=== PATIENT | female | born 1970 | race Caucasian/White ===

== ENCOUNTER 2017-02-15 01:25 | Observation (INO) | payer BC, OTHER ==
[2017-02-15] VITALS (7 sets, daily range): BP systolic 100–127; BP diastolic 59–69; PULSE 59–89; RESP 18–20; TEMP 97.5–98.1; O2SAT 95–100
[~2017-02-15] VITALS: Ht 170.2 cm; Wt 70.0 kg
[2017-02-15 02:29] LABS: AUTOMATED NEUTROPHIL # 6.4 TH/MM3 (1.8-7.7); BASOPHIL # 0.1 TH/MM3 (0-0.2); BASOPHIL % 0.6 % (0.0-2.0); EOSINOPHIL # 0.2 TH/MM3 (0-0.4); EOSINOPHIL % 1.9 % (0.0-4.0); HEMATOCRIT 35.5 % (35.0-46.0); HEMO FLAGS DIFF FINAL; LYMPH % 19.2 % (9.0-44.0); LYMPHOCYTE # 1.8 TH/MM3 (1.0-4.8); MEAN CELL VOLUME 90.9 FL (80.0-100.0); MEAN CORPUSCULAR HEMOGLOBIN 29.9 PG (27.0-34.0); MEAN CORPUSCULAR HGB CONC 32.9 % (32.0-36.0); MONO % 8.1 % (0.0-8.0); NEUT % 70.2 % (16.0-70.0); PLATELET COUNT 250 TH/MM3 (150-450); RED CELL DISTRIBUTION WIDTH 13.1 % (11.6-17.2); WHITE BLOOD COUNT 9.1 TH/MM3 (4.0-11.0)
[2017-02-15] MEDS ORDERED: MORPHINE SULFATE 4 MG/ML INJ IV PUSH ONE ×2 (02:30→05:15)
--- NOTE | 2017-02-15 02:30 | PD ---
HPI Chief Complaint: Abdominal Pain Time Seen by Provider: 01:41 Travel History International Travel<30 days: No Contact w/Intl Traveler<30days: No Traveled to known affect area: No History of Present Illness HPI So 46-year-old woman who presents to the emergency department complaining of abdominal pain and flank pain. States that over the past 5 hours associated gradual onset of worsening right high flank pain just underneath her breast along the costal margin. She's never had pain like this before. She had a little nausea vomiting, some occasional chills. Pain is worse with deep breathing. She had a little bit of slightly loose stool as well. No other clear aggravating or alleviating factors. She has no history of abdominal surgeries. She is visiting from [place], drove down a couple days ago, and 18 hour dry. She'll bit of swelling of both her ankles, but moderate tenderness, no asymmetric swelling. Never had gallbladder problems before. No other complaints. History Past Medical History Medical History: Denies Significant Hx Tetanus Vaccination: > 5 Years Influenza Vaccination: No LMP: 01/30 : 3 Past Surgical History Surgical History: No Previous Surgery Social History Alcohol Use: Yes Tobacco Use: No Allergies-Medications (Allergen,Severity, Reaction): Coded Allergies: No Known Allergies (Unverified , 02/15/17) Reported Meds & Prescriptions Reported Meds & Active Scripts Active No Active Prescriptions or Reported Medications Review of Systems Except as stated in HPI: all other systems reviewed are Neg Physical Exam Narrative GENERAL: This a 46 year-old woman, appears uncomfortable but nontoxic. SKIN: Focused skin assessment warm/dry. NECK: Trachea midline. No JVD. CARDIOVASCULAR: Regular rate and rhythm. No murmur appreciated. RESPIRATORY: No accessory muscle use. Clear to auscultation. Breath sounds equal bilaterally. GASTROINTESTINAL: Abdomen is flat and soft. Mild to moderate right upper quadrant tenderness. No CVA tenderness percussion. No rebound or guarding. MUSCULOSKELETAL: No obvious deformities. No edema. NEUROLOGICAL: Awake and alert. No obvious cranial nerve deficits. Motor grossly within normal limits. Normal speech. PSYCHIATRIC: Appropriate mood and affect; insight and judgment normal. Data Data Last Documented VS Vital Signs Date Time Temp Pulse Resp B/P Pulse Ox O2 Delivery O2 Flow Rate FiO2 02/15/17 06:31 67 18 110/67 100 02/15/17 05:17 98.1 Room Air 02/15/17 01:27 100 Orders Complete Blood Count With Diff (02/15/17 01:54) Comprehensive Metabolic Panel (02/15/17 01:54) Urinalysis - C+S If Indicated (02/15/17 01:54) Ed Urine Pregnancytest Poc (02/15/17 01:54) Ed Poc Ultrasound (02/15/17 ) D-Dimer (02/15/17 01:54) Iv Access Insert/Monitor (02/15/17 01:54) Morphine Inj (Morphine Inj) (02/15/17 02:30) Us Abdomen Gallbladder (02/15/17 ) Chest, Pa & Lat (02/15/17 ) Morphine Inj (Morphine Inj) (02/15/17 05:15) Admit Order (Ed Use Only) (02/15/17 ) Labs Laboratory Tests Test 02/15/17 02:03 White Blood Count 9.1 TH/MM3 Red Blood Count 3.90 MIL/MM3 Hemoglobin 11.7 GM/DL Hematocrit 35.5 % Mean Corpuscular Volume 90.9 FL Mean Corpuscular Hemoglobin 29.9 PG Mean Corpuscular Hemoglobin 32.9 % Concent Red Cell Distribution Width 13.1 % Platelet Count 250 TH/MM3 Mean Platelet Volume 8.4 FL Neutrophils (%) (Auto) 70.2 % Lymphocytes (%) (Auto) 19.2 % Monocytes (%) (Auto) 8.1 % Eosinophils (%) (Auto) 1.9 % Basophils (%) (Auto) 0.6 % Neutrophils # (Auto) 6.4 TH/MM3 Lymphocytes # (Auto) 1.8 TH/MM3 Monocytes # (Auto) 0.7 TH/MM3 Eosinophils # (Auto) 0.2 TH/MM3 Basophils # (Auto) 0.1 TH/MM3 CBC Comment DIFF FINAL Differential Comment D-Dimer Quantitative (PE/DVT) 0.30 MG/L FEU Urine Color LIGHT-YELLOW Urine Turbidity CLEAR Urine pH 6.5 Urine Specific [place] 1.014 Urine Protein NEG mg/dL Urine Glucose (UA) NEG mg/dL Urine Ketones NEG mg/dL Urine Occult Blood NEG Urine Nitrite NEG Urine Bilirubin NEG Urine Urobilinogen LESS THAN 2.0 MG/DL Urine Leukocyte Esterase NEG Urine RBC 1 /hpf Urine Squamous Epithelial <1 /hpf Cells Urine Mucus FEW /lpf Microscopic Urinalysis Comment CULT NOT INDICATED Sodium Level 138 MEQ/L Potassium Level 3.6 MEQ/L Chloride Level 103 MEQ/L Carbon Dioxide Level 26.5 MEQ/L Anion Gap 9 MEQ/L Blood Urea Nitrogen 11 MG/DL Creatinine 0.74 MG/DL Estimat Glomerular Filtration 84 ML/MIN Rate Random Glucose 110 MG/DL Calcium Level 9.2 MG/DL Total Bilirubin 0.2 MG/DL Aspartate Amino Transf 12 U/L (AST/SGOT) Alanine Aminotransferase 18 U/L (ALT/SGPT) Alkaline Phosphatase 99 U/L Total Protein 7.6 GM/DL Albumin 4.1 GM/DL [facility] Medical Decision Making Medical Screen Exam Complete: Yes Emergency Medical Condition: Yes Interpretation(s) LABS: CBC unremarkable CMP unremarkable D-Dimer 0.3 UA unremarkable Right upper quadrant ultrasound: Multiple mobile gallstones in gallbladder wall thickening, minimal pericholecystic fluid. Chest x-ray: No acute disease. Differential Diagnosis PE, renal lithiasis, hepatobiliary disease, gastritis, cholecystitis, other Narrative Course Medical decision making INITIAL: This a 46-year-old woman who presents to the emergency department with high right flank pain. Symptoms seem to be more in the right high flank, less in the right abdomen. Differential is wide and includes PE, cholecystitis, renal lithiasis. Only risk factor for PE is a recent travel. She looks otherwise well. Bedside ultrasound shows dilated gallbladder with stones, no clear Cochran's sign, and the kidney looks normal. We'll check labs, and further evaluation. FINAL: 46 year-old woman with apparent acute cholecystitis. I spoke with Dr. Oneal, he'll come and evaluate the patient. Diagnosis Primary Impression: Acute cholecystitis Scripts No Active Prescriptions or Reported Meds Willis Cardona MD February 15, 2017 02:30
[2017-02-15 02:34] LABS: BLOOD, URINE NEG (NEG); COMMENT (UR) CULT NOT INDICATED; CULTURE IF INDICATED CULT NOT INDICATED; GLUCOSE,URINE NEG (NEG); KETONE, URINE NEG (NEG); MUCUS URINE FEW /lpf (OCC); NITRITE,URINE NEG (NEG); PH, URINE 6.5 (5.0-8.5); SQUAMOUS EPITHELIAL CELL URINE <1 /hpf (0-5); URINE COLOR LIGHT-YELLOW (YELLW/STRAW)
[2017-02-15 02:52] LABS: ALT (GPT) 18 U/L (10-53); ANION GAP 9 MEQ/L (5-15); AST (GOT) 12 U/L (15-37); BICARBONATE 26.5 MEQ/L (21.0-32.0); BLOOD UREA NITROGEN 11 MG/DL (7-18); CHLORIDE 103 MEQ/L (98-107); GLOMERULAR FILTRATION RATE 84 ML/MIN (>89); POTASSIUM 3.6 MEQ/L (3.5-5.1); SODIUM (NA) 138 MEQ/L (136-145)
[2017-02-15 02:54] LABS: ALKALINE PHOSPHATASE 99 U/L (45-117); TOTAL BILIRUBIN ADULT 0.2 MG/DL (0.2-1.0)
--- NOTE | 2017-02-15 04:55 | RADRPT ---
EXAM DATE/TIME: 02/15/2017 04:11 [facility] COMPARISON: No previous studies available for comparison. INDICATIONS : Patient states right side chest pains fot the past 2 hours. MEDICAL HISTORY : None. SURGICAL HISTORY : None. ENCOUNTER: Initial ACUITY: 1 day PAIN SCORE: 4/10 LOCATION: Bilateral chest FINDINGS: PA and lateral views of the chest demonstrate the lungs to be symmetrically aerated without evidence of mass, infiltrate or effusion. The cardiomediastinal contours are unremarkable. Osseous structure s are intact. CONCLUSION: No acute disease. Santos Salazar MD on February 15, 2017 at 4:54 Board Certified Radiologist. This report was verified electronically.
--- NOTE | 2017-02-15 06:48 | RADRPT ---
EXAM DATE/TIME: 02/15/2017 05:50 [facility] COMPARISON: No previous studies available for comparison. INDICATIONS : Right upper quadrant pain. MEDICAL HISTORY : RUQ pain. Nausea/vomiting. SURGICAL HISTORY : None. ENCOUNTER: Initial ACUITY: 1 day PAIN SCORE: 4/10 LOCATION: Right upper quadrant MEASUREMENTS: LIVER: 14.2 cm length COMMON DUCT: 4 mm RIGHT KIDNEY: 10.6 x 4.7 x 3.9 cm FINDINGS: LIVER: Normal echotexture without focal lesion or ductal dilatation. Hepatopedal flow. COMMON DUCT: No intraluminal mass or stone visualized. GALLBLADDER: Contains multiple mobile stones, demonstrates wall thickening and minimal pericholecystic fluid. Gal lbladder wall measures 5-6 mm. PANCREAS: The visualized portions are within normal limits. RIGHT KIDNEY: No evidence of hydronephrosis, stone, or mass. CONCLUSION: 1. Multiple mobile stones with gallbladder wall thickening. Minimal pericholecystic fluid. Acute chol ecystitis cannot be excluded. Santos Salazar MD on February 15, 2017 at 6:44 Board Certified Radiologist. This report was verified electronically.
[2017-02-15] MEDS ORDERED: Post-op Orders (for Pharmacy) MISC XX ONE ×2 (08:45→12:45)
[2017-02-15] MEDS ORDERED: NALOXONE HCL 0.4 MG/ML AMP IV PRN ×2 (08:45→12:45)
[2017-02-15] MEDS ORDERED: SODIUM CHLORIDE 0.9% FLUSH 5 ML FLUSH IVF PRN ×2 (08:45→12:45)
[2017-02-15] MEDS ORDERED: ONDANSETRON HCL 4 MG/2 ML VIAL IV PRN ×2 (09:00→12:45)
[2017-02-15] MEDS ORDERED: MORPHINE SULFATE 4 MG/ML INJ IV PUSH PRN (09:00)
--- NOTE | 2017-02-15 09:09 | MH ---
cc: JENNY MO M.D. DATE OF ADMISSION: 02/15/2017 REASON FOR ADMISSION: Acute cholecystitis. HISTORY OF PRESENT ILLNESS The patient is very pleasant 46-year-old female who presented to the emergency department complaining of right sided abdominal pain under the costal margin and flank pain. The patient ate at [employer] last night and states that over 5 hours prior to admission she had gradual onset of worsening right high flank pain. She has never had pain like this before. She had a little bit of nausea and vomiting and pain is worse with deep breathing. There is no other aggravating factor. She has never had this before. Her mother has had her gallbladder removed when the patient was three months old. PAST MEDICAL HISTORY The patient has no other significant medical history. GYNECOLOGY HISTORY: Last menstrual period was 01/30/2017. She is 2. PAST SURGICAL HISTORY: No previous surgeries. SOCIAL HISTORY: She uses alcohol occasionally. She does not smoke. MEDICATIONS: She no uses no other medications. ALLERGIES No known drug allergies. REVIEW OF SYSTEMS All other systems are negative except as stated above. PHYSICAL EXAMINATION IN GENERAL: Reveals a female who is minimally uncomfortable. VITAL SIGNS: Blood pressure 110/67, pulse 67, respirations 81, 100% saturation on room air. HEAD, EYES, EARS, NOSE, AND THROAT: Sclerae anicteric. Pupils reactive. LUNGS: Chest is clear to auscultation. CARDIOVASCULAR SYSTEM: Cardiac exam reveals regular rate and rhythm. ABDOMEN: Abdomen is soft with tenderness located in the right subcostal region extending through with some CVA tenderness. Ultrasound was performed in the emergency department which demonstrates gallbladder wall thickening and pericholecystic fluid. Pulses are present throughout. EXTREMITIES: The patient has multiple tattoos on both upper extremities. Pulses are intact. NEUROLOGIC: Neurologic: Exam is nonfocal. LABORATORY FINDINGS: Laboratory values demonstrate WBCs of 9.1, platelets are 250,000. Chemistries demonstrate a normal liver function tests with aspartate aminotransferase actually below normal. Potassium is 3.6, D-dimer is normal. Urinalysis is essentially unremarkable. FINDINGS: Gallbladder ultrasound shows multiple mobile stones in the gallbladder with wall thickening and minimal cold pericholecystic fluid. Common duct is not dilated and no stones were visualized in the duct. ASSESSMENT Acute cholecystitis. PLAN I have discussed options with the patient and rather than have her undergo further imaging it is reasonable to proceed with cholecystectomy. I have discussed risks of surgery including but not limited to bleeding, infection, bile duct injury, bowel injury, possible need for drainage, ERCP, or reoperation. I have discussed remedies, consequences, alternatives, and convelscence; the patient and her mother vocalize understanding and agreed to proceed. MD MARY France/bakari /8:38 AM 8:57 AM [id number]
[2017-02-15] MEDS: D5-NS + KCL 20 MEQ INJ 1,000 ML IV SCH ×2 (09:11→15:59)
[2017-02-15] MEDS ORDERED: PIPERACIL-TAZO 3.375 GM PREMIX 50 ML IV ONE (10:00)
[2017-02-15] MEDS ORDERED: SODIUM CHLORIDE 0.9% FLUSH 5 ML FLUSH IVF SCH (10:00)
[2017-02-15] MEDS ORDERED: BUPIVACAINE/EPINEPHRINE 0.25% 50 ML VIAL ONE (11:37)
[2017-02-15] MEDS ORDERED: NORC5TAB PO (12:35)
--- NOTE | 2017-02-15 12:38 | HHI.PR ---
cc: Beni Oneal MD Immediate Post Op Note Procedure Date: February 15, 2017 Pre Op Diagnosis: Acute cholecystitis Post Op Diagnosis: Same Surgeon: Beni Oneal Acute Coordinator(s): Rossana Santizo CFA Procedure: Laparoscopic cholecystectomy Complications: None Specimen(s) removed: Gallbladder to pathology Estimated blood loss: <30 ml Anesthesia: General Drains: None IVF (900 ml) Patient to: PACU Patient Condition: Good Date/Time of Procedure: SEE SURGICAL CARE RECORD Beni Oneal MD February 15, 2017 12:38
[2017-02-15] MEDS ORDERED: diphenhydrAMINE HCL 50 MG/ML VIAL IVP PRN (12:45)
[2017-02-15] MEDS ORDERED: ACETAMINOPHEN/HYDROcodone 325 MG/5 MG TAB PO PRN (12:45)
[2017-02-15] MEDS ORDERED: DO NOT ADM ANY ANTICOAGULANT DRUGS PRN (12:48)
[2017-02-15] MEDS ORDERED: PCA - TOTAL MG MORPHINE DELIVERED PER SHIFT SCH (14:00)
--- NOTE | 2017-02-15 14:42 | MP ---
cc: JENNY MO M.D. DATE OF SURGERY: 02/15/2017 PREOPERATIVE DIAGNOSIS: Acute cholecystitis. POSTOPERATIVE DIAGNOSIS: Acute cholecystitis. ANESTHESIA General endotracheal SURGEON Jm ESTIMATED BLOOD LOSS Less than 30 mls. FLUIDS: 900 mls crystalloid COMPLICATIONS None. DRAINS: Drains none. SPECIMEN Gallbladder and stones to pathology. PROCEDURE IN DETAIL The patient was taken to the operating room and placed on the operating table in the supine position. After an adequate level of general endotracheal anesthesia was achieved the abdomen was prepped and draped in usual fashion. Time-out was taken confirming the correct patient site and procedure to be performed. Skin and subcutaneous tissue was infiltrated with local anesthetic and an incision made in the umbilicus and carried through the fascia sharply. The peritoneal cavity was directly visualized. A 12 mm balloon trocar was inserted and the balloon inflated. The abdomen was insufflated. A 5 mm 0 degrees laparoscope was inserted and the upper abdomen visualized with the patient in reverse Trendelenburg. Three 5 mm trocars were then placed with the first to the right of the falciform ligament and second and third in the right subcostal region. All entered the abdominal cavity under direct vision uneventfully. The fundus of the gallbladder was then grasped and retracted upward. Omental adhesions were taken down off of the gallbladder. The gallbladder appeared to be acutely inflamed. The cystic duct infundibular junction and cystic artery were both circumferentially dissected. The cystic duct was doubly clipped distally, singly clipped on the gallbladder side and then divided. Cholangiogram was not obtained as the patient had normal liver function tests, normal caliber common bile duct and anatomy was clearly identified. The cystic artery was then doubly clipped proximally, singly clipped on the gallbladder side and divided. The gallbladder was then dissected off of the liver bed with electro dissection. The gallbladder was placed into an EndoCatch device and removed via the umbilical port while observing via the upper 5 mm trocar site. The specimen was passed off the table. The upper abdomen was revisualized; the liver bed cystic artery stump and cystic duct stump were both were all seen to be clean and dry. All irrigation was aspirated from the abdominal cavity. Insufflation was then discontinued and the upper abdominal trocars removed under direct vision. No bleeding was noted from the trocar sites during the desufflation. The laparoscope and umbilical port were removed. The fascia was closed in the umbilicus with 0 Vicryl suture and a simple interrupted and [id number] fashion. The remaining local anesthetic was injected into all of the trocar sites and the skin closed at each of these sites with 4-0 Vicryl in an interrupted buried fashion. All sites were dressed with Steri-Strips. The patient was extubated and taken back to the recovery room in stable condition. She tolerated the procedure well. MD MARY France/bakari /12:45 PM /2:37 PM
[2017-02-15] MEDS ORDERED: METOCLOPRAMIDE HCL 10 MG/2 ML VIAL IV ONE (14:45)
[2017-02-15] MEDS ORDERED: METOCLOPRAMIDE HCL 10 MG/2 ML VIAL IV PRN (14:45)
[2017-02-15] MEDS ORDERED: PROPOFOL 200 MG/20 ML AMP IV ONE (15:21)
[2017-02-15] MEDS ORDERED: KETOROLAC TROMETHAMINE 60 MG/2 ML (IM) VIAL IM ONE (15:22)
[2017-02-15] MEDS ORDERED: ONDANSETRON HCL 4 MG/2 ML VIAL IV PUSH ONE (15:22)
[2017-02-15] MEDS ORDERED: ePHEDrine/NS 25 MG/5 ML SYR IV ONE (15:22)
[2017-02-15] MEDS ORDERED: NEOSTIGMINE 3 MG/3 ML SYR IV ONE (15:22)
[2017-02-15] MEDS ORDERED: fentaNYL CITRATE 250 MCG/5 ML AMP ONE (15:36)
[2017-02-15] MEDS: ACETAMINOPHEN/HYDROcodone 325 MG/5 MG TAB PO PRN ×2 (17:21→21:23)
[2017-02-15] MEDS: SODIUM CHLORIDE 0.9% FLUSH 5 ML FLUSH IVF SCH (19:31)
[2017-02-15] MEDS: SODIUM CHLOR 0.9% 1000 ML INJ 1,000 ML IV SCH (19:33)
[2017-02-16] VITALS: BP 96/52; PULSE 81; RESP 20; TEMP 97.3; O2SAT 97
[2017-02-16 04:00] VITALS: BP 98/56; PULSE 77; RESP 20; TEMP 97.7; O2SAT 99
[2017-02-16] MEDS: ACETAMINOPHEN/HYDROcodone 325 MG/5 MG TAB PO PRN (04:47)
[2017-02-16 08:00] VITALS: BP 100/53; PULSE 81; RESP 20; TEMP 97.4; O2SAT 97
[2017-02-16] MEDS: KETOROLAC TROMETHAMINE 30 MG/ML (IVP) VIAL IVP PRN ×3 (08:00→23:59)
[2017-02-16] MEDS: SODIUM CHLOR 0.9% 1000 ML INJ 1,000 ML IV SCH ×2 (08:03→17:11)
[2017-02-16] MEDS: SODIUM CHLORIDE 0.9% FLUSH 5 ML FLUSH IVF SCH ×2 (08:03→21:00)
[2017-02-16 12:00] VITALS: BP 100/59; PULSE 79; RESP 20; TEMP 97.8; O2SAT 96
--- NOTE | 2017-02-16 12:02 | HHI.PR ---
Subjective Subjective Notes no acute issues, tolerating liquids Objective Vitals/I&O Vital Signs Date Time Temp Pulse Resp B/P Pulse Ox O2 Delivery O2 Flow Rate FiO2 02/16/17 09:00 18 02/16/17 08:00 97.4 81 100/53 97 02/15/17 13:15 Nasal Cannula 2 02/15/17 01:27 100 Cardiovascular: Regular Lungs: Clear Abdomen: Other (soft mild, incision scant dry blood) A/P Assessment and Plan s/p lap jesus PLAN Reg diet pain control po dvt ppx ok to d/c after lunch f/u with Vikram Hanson MD February 16, 2017 12:01
[2017-02-16] MEDS ORDERED: DOCUSATE SODIUM 50 MG/SENNA 8.6 MG TAB PO ONE (13:00)
[2017-02-16 16:00] VITALS: BP 106/59; PULSE 88; RESP 19; TEMP 98.8; O2SAT 97
[2017-02-16 20:00] VITALS: BP 99/61; PULSE 97; RESP 17; TEMP 99.5; O2SAT 94
[2017-02-17] VITALS: BP 113/63; PULSE 95; RESP 17; TEMP 99.4; O2SAT 97
[2017-02-17 08:00] VITALS: BP 114/64; PULSE 101; RESP 18; TEMP 97.4; O2SAT 96
== END 2017-02-17 10:17 | disposition home or self-care (01) ==
LOC: NEPC 01:25 → NEDA 07:07 → N07A 13:37
PROVIDERS: ADMIT Surgery Trauma Surgery; ATTEND Surgery Trauma Surgery
PROC: 0FT44ZZ Resection of Gallbladder, Percutaneous Endoscopic Approach (ICD-10-PCS; principal; 2017-02-15 11:22)
DX: K80.10 Calculus of gallbladder with chronic cholecystitis without obstruction (principal); M25.471 Effusion, right ankle; M25.472 Effusion, left ankle
CPT/HCPCS: 00790; 47562; 71020; 76705; 80053; 81001; 84703; 85025; 85379; 88304; 96374; 99285; G0378; J1885; J2270; J2405; J2543; J2710; J2765; J3010; J3480; J7030

== ENCOUNTER → 2017-03-27 | Day surgery (SDC) | payer OTHER ==
[~2017-03-27] MED LIST: ACETAMINOPHEN 1000 MG/100 ML VIAL IV ONE; APREPITANT 40 MG CAP ONE; BACITRACIN IM FOR SOLN 50,000 UNIT VIAL ONE; BUPIVACAINE/EPINEPHRINE 0.5% PF 30 ML VIAL ONE; GENTAMICIN SULFATE 80 MG/2 ML VIAL ONE; KETOROLAC TROMETHAMINE 30 MG/ML (IVP) VIAL IV PUSH ONE; LACTATED RINGER'S 1,000 ML BAG IV ONE; LACTATED RINGER'S 1000 ML INJ 1,000 ML ONE; LIDOCAINE 1.5%/EPINEPHrine 1:200,000 PF SOLN 30 ML AMP ONE; MIDAZOLAM HCL 2 MG/2 ML VIAL ONE; NORC5TAB PO; ONDANSETRON HCL 4 MG/2 ML VIAL IV PUSH ONE; PROPOFOL 200 MG/20 ML AMP IV ONE; SODIUM CHLORIDE 0.9% 20 ML VIAL ONE; SODIUM CHLORIDE 0.9% INJ 10 ML ONE; ceFAZolin INJ 1,000 MG VIAL ONE
--- NOTE | 2017-03-27 12:31 | TN ---
cc: LEX GUZMAN DATE OF SURGERY 03/27/2017 PREOPERATIVE DIAGNOSIS History of breast ptosis, enlargement of areolas and aging breast implants and capsular contraction. PROCEDURE 1. Removal, replacement of implants for a SRX Natrelle Inspire 400, serial number to the right breast device [id number] and to the left serial number [id number]. 2. Full capsulectomies 3. Lateral and inferior capsulorrhaphies 4. Repair of the pectoris major muscle reattachment 5. A circumvertical mastopexy SURGEON Lex Guzman MD/LINCOLN ANESTHESIA Was LMA general. I also utilized total of 6 cc of 1% lidocaine and epinephrine 30 cc mix per side. PROCEDURE She was properly consented, marked properly, anesthetized. The skin was sterilized with Betadine solution and sterile draping applied. I performed through a center inferior vertical infra-areolar incision, I went down into the capsule with findings significant consistent with capsule contraction. A full capsulectomy was done utilizing electrocautery. It is to be mentioned, the patient had what appears to be a previous partial capsulectomy, however, I encountered significant scar that had to be removed. I proceeded to perform that removal and copious irrigation with antibiotic solution was carried out. After performing a lateral inferior capsulorrhaphy utilizing 0-silk in multiple layer in a [id number] fashion, I proceeded to anchor and reposition the pectoris major muscle utilizing 2-0 Monocryl suture down into the breast parenchyma. Once that was performed, I proceeded through a separate stab wound brought out a 7 mm JEANIE drain and secured it in place utilizing 2-0 Monocryl suture. Utilizing a no-touch technique, I proceeded to introduce the implant. From there, I went and closed the wounds utilizing 2-0 Monocryl suture in the dermis and subcu and the patient was sat up. A tailor tack technique was properly utilized in order to reassess the envelope access and corrected ptosis. This was properly performed by setting the NAC at about 48-50 mm in diameter at about 21-1/2 to 22 cm from the sternal notch. The skin was properly de-epithelialized and the vertical and horizontal skin was closed utilizing a 2-0 Monocryl suture in the dermis and subcu. The NAC was brought and secured in place utilizing a pinwheel, 2-0 PTFE suture and reinforced with 2-0 quill. Prineo Dermabond was applied thereafter. Overall, good viability of tissue was noted at the end of the case. The patient was awakened and extubated in the operating room and transferred back to the postanesthesia care unit in stable conditions. No complications appreciated. The patient tolerated the procedure fairly well. MD CRIS Holley/ALHAJI /12:15 PM /12:23 PM
== END | disposition home or self-care (01) ==
LOC: ESDC 07:08
PROVIDERS: ATTEND Plastic Surgery
DX: Z41.1 Encounter for cosmetic surgery (principal)
CPT/HCPCS: 00400; 00402; 19316; 19325; 19328; 88305; 88311; C1789; J0131; J0690; J1580; J1885; J2250; J2405; J3010; J7120; J8501